=== PATIENT | female | born 1975 | race African-American/Black ===

== ENCOUNTER 2016-12-06 03:14 | Emergency (ER) | payer MEDICAID ==
[~2016-12-06] VITALS: Ht 182.9 cm; Wt 84.0 kg
[~2016-12-06 03:14] MED LIST: DEPAKOTE; EFFEXOR; HCTZ; INSULIN; LOTENSIN; SEROQUEL
[2016-12-06] MEDS ORDERED: SODIUM CHLORIDE 0.9% 1,000 ML IV ONE (05:01)
[2016-12-06] MEDS ORDERED: LORAZEPAM 2MG/ML CPJ IM STA (05:01)
[2016-12-06] MEDS ORDERED: HALOPERIDOL LACTATE 5MG/ML VIAL IM STA (05:01)
[2016-12-06] MEDS ORDERED: DIPHENHYDRAMINE 50MG/ML VIAL IM STA (05:01)
[2016-12-06] MEDS ORDERED: BACITRACIN ZINC OINT UDPKT TOP ONE (05:15)
[2016-12-06] MEDS ORDERED: TETANUS, DIPHTHERIA, PERTUSSIS VAC/PF 0.5ML (>7YR OLD) IM ONE (05:15)
[2016-12-06 05:33] LABS: CHLORIDE 109 mEq/L (98-107)
[2016-12-06 05:34] LABS: BASOPHILS % 1.5 % (0.0-2.0); EOSINOPHILS % 1.7 % (0.0-5.0); HEMATOCRIT. 35.1 % (36.0-48.0); HEMOGLOBIN. 10.7 g/dL (12.0-16.0); MEAN CORPUSCULAR HEMOGLOBIN 20.8 pg (28.0-32.0); MEAN CORPUSCULAR VOLUME 68.3 fL (81.0-99.0); MEAN PLATELET VOLUME 8.5 fl (7.4-10.4); MONOCYTES % 4.8 % (2.0-8.0); PLATELET 326 x1000/uL (130-400); RED BLOOD CELL COUNT 5.13 mill/uL (4.2-5.4); RED CELL DISTRIBUTION WIDTH 33.7 % (11.6-14.6)
[2016-12-06 05:37] LABS: HCG SCREEN NEGATIVE
[2016-12-06 05:40] LABS: PLATELET ESTIMATE NORMAL
[2016-12-06 05:44] LABS: CARBON DIOXIDE 27 mEq/L (21-32); ETHANOL BLOOD < 10 mg/dL
[2016-12-06 06:28] LABS: CLARITY URINE CLOUDY (CLEAR); COLOR URINE YELLOW (YELLOW); GLUCOSE URINE NEGATIVE (NEGATIVE); KETONES URINE NEGATIVE (NEGATIVE); LEUKOCYTE ESTERASE URINE 2+ (NEGATIVE); NITRITE URINE NEGATIVE (NEGATIVE); OCCULT BLOOD URINE 3+ (NEGATIVE); PROTEIN URINE 1+ (NEGATIVE); SPECIFIC GRAVITY URINE 1.025 (1.005-1.030); UROBILINOGEN URINE 0.2 E.U./dL (0.2-1.0)
[2016-12-06 07:08] LABS: *AMPHETAMINES SCREEN URINE NEGATIVE (NEGATIVE); *BARBITURATES SCREEN URINE NEGATIVE (NEGATIVE); *BENZODIAZEPINES SCREEN URINE NEGATIVE (NEGATIVE); *COCAINE SCREEN URINE NEGATIVE (NEGATIVE); CANNABINOID URINE SCREEN NEGATIVE (NEGATIVE); METHADONE URINE SCREEN NEGATIVE (NEGATIVE); OPIATES URINE SCREEN NEGATIVE (NEGATIVE); PHENCYCLIDINE URINE SCREEN NEGATIVE (NEGATIVE)
[2016-12-06] MEDS ORDERED: DIVALPROEX SODIUM 500MG DR TABLET PO ONE (20:00)
[2016-12-06] MEDS ORDERED: QUETIAPINE FUMARATE 100MG TABLET PO SCH (20:00)
[2016-12-07 16:00] VITALS: BP 138/77
== END 2016-12-07 16:49 | disposition home or self-care (01) ==
LOC: ER 03:14
DX: S61.412A Laceration without foreign body of left hand, initial encounter (principal); R45.851 Suicidal ideations; F20.9 Schizophrenia, unspecified; I10 Essential (primary) hypertension; E11.9 Type 2 diabetes mellitus without complications; Z88.0 Allergy status to penicillin; X78.9XXA Intentional self-harm by unspecified sharp object, initial encounter; Y93.89 Activity, other specified; Y92.89 Other specified places as the place of occurrence of the external cause; Y99.8 Other external cause status
CPT/HCPCS: 36415; 80053; 80165; 80305; 80307; 80329; 81001; 82962; 84703; 85025; 96360; 96372; 99285; G0482; J1200; J2060; J7030; Z7610

== ENCOUNTER 2021-06-29 13:28 | Emergency (ER) | payer MEDICAID, OTHER ==
[~2021-06-29] VITALS: Ht 172.7 cm; Wt 100.0 kg
[2021-06-29 14:42] LABS: BASOPHILS % 1.2 % (0.0-2.0); EOSINOPHILS % 2.4 % (0.0-5.0); HEMATOCRIT. 43.7 % (36.0-48.0); HEMOGLOBIN. 14.4 g/dL (12.0-16.0); LYMPHOCYTES % 17.2 % (20.0-50.0); MEAN CORPUSCULAR HEMOGLOBIN 27.4 pg (28.0-32.0); MEAN PLATELET VOLUME 7.6 fl (7.4-10.4); MONOCYTES % 3.9 % (2.0-8.0); NEUTROPHILS % 75.3 % (40.0-76.0); PLATELET 308 x1000/uL (130-400); RED BLOOD CELL COUNT 5.27 mill/uL (4.2-5.4); RED CELL DISTRIBUTION WIDTH 14.2 % (11.6-14.6)
[2021-06-29 14:53] LABS: CHLORIDE 110 mEq/L (98-107)
[2021-06-29 15:00] LABS: ETHANOL BLOOD < 10 mg/dL
[2021-06-29 15:25] LABS: HCG SCREEN NEGATIVE
[2021-06-30] MEDS ORDERED: LISINOPRIL 20MG TABLET PO ONE (09:30)
[2021-06-30 13:38] VITALS: BP 166/100
== END 2021-06-30 16:01 | disposition home or self-care (01) ==
LOC: ER 13:40
DX: R10.9 Unspecified abdominal pain (principal); I10 Essential (primary) hypertension; E11.9 Type 2 diabetes mellitus without complications; F20.9 Schizophrenia, unspecified; F32.A Depression, unspecified; Z59.02 Unsheltered homelessness
CPT/HCPCS: 36415; 80053; 80307; 80320; 80329; 84703; 85025; 99285; G0480

== ENCOUNTER 2021-08-30 16:52 | Emergency (ER) | payer MEDICAID ==
[~2021-08-30] VITALS: Ht 182.9 cm; Wt 91.0 kg
[2021-08-30 16:57] VITALS: BP 174/83
== END 2021-08-30 18:07 | disposition left against medical advice (07) ==
LOC: ER 16:52
DX: Z53.21 Procedure and treatment not carried out due to patient leaving prior to being seen by health care provider (principal)

== ENCOUNTER 2021-09-11 05:10 | Emergency (ER) | payer MEDICAID ==
[~2021-09-11] VITALS: Ht 177.8 cm; Wt 100.0 kg
[2021-09-11 06:00] VITALS: BP 154/94
[2021-09-11] MEDS ORDERED: ACETAMINOPHEN 325MG TABLET PO ONE (06:00)
[2021-09-11] MEDS ORDERED: TOPUD PO (06:47)
== END 2021-09-11 08:45 | disposition home or self-care (01) ==
LOC: ER 05:10
DX: R53.1 Weakness (principal); M79.18 Myalgia, other site; F32.9 Major depressive disorder, single episode, unspecified; E11.9 Type 2 diabetes mellitus without complications; I10 Essential (primary) hypertension; F20.9 Schizophrenia, unspecified
CPT/HCPCS: 99283

== ENCOUNTER 2021-10-22 17:20 | Emergency (ER) | payer MEDICAID ==
[~2021-10-22] VITALS: Ht 177.8 cm; Wt 80.0 kg
[~2021-10-22 17:20] MED LIST changes: +TOPUD PO
[2021-10-22 18:41] LABS: BASOPHILS % 0.9 % (0.0-2.0); EOSINOPHILS % 1.4 % (0.0-5.0); HEMATOCRIT. 40.9 % (36.0-48.0); HEMOGLOBIN. 13.3 g/dL (12.0-16.0); LYMPHOCYTES % 16.1 % (20.0-50.0); MEAN CORPUSCULAR HEMOGLOBIN 26.8 pg (28.0-32.0); MEAN CORPUSCULAR VOLUME 82.4 fL (81.0-99.0); MEAN PLATELET VOLUME 8.6 fl (7.4-10.4); MONOCYTES % 4.4 % (2.0-8.0); NEUTROPHILS % 77.2 % (40.0-76.0); PLATELET 274 x1000/uL (130-400); RED BLOOD CELL COUNT 4.96 mill/uL (4.2-5.4); RED CELL DISTRIBUTION WIDTH 15.1 % (11.6-14.6)
[2021-10-22 18:44] LABS: CLARITY URINE CLEAR (CLEAR); COLOR URINE YELLOW (YELLOW); KETONES URINE TRACE (NEGATIVE); LEUKOCYTE ESTERASE URINE NEGATIVE (NEGATIVE); NITRITE URINE NEGATIVE (NEGATIVE); OCCULT BLOOD URINE 3+ (NEGATIVE); PH URINE 5.5 (4.5-8.0); PROTEIN URINE 2+ (NEGATIVE); SPECIFIC GRAVITY URINE 1.039 (1.005-1.030)
[2021-10-22 18:47] LABS: CHLORIDE 101 mEq/L (98-107)
[2021-10-22 18:53] LABS: HCG SCREEN NEGATIVE
[2021-10-22 18:58] LABS: ETHANOL BLOOD < 10 mg/dL
[2021-10-22 19:18] LABS: *AMPHETAMINES SCREEN URINE NEGATIVE (NEGATIVE); *BARBITURATES SCREEN URINE NEGATIVE (NEGATIVE); *BENZODIAZEPINES SCREEN URINE NEGATIVE (NEGATIVE); CANNABINOID URINE SCREEN NEGATIVE (NEGATIVE); METHADONE URINE SCREEN NEGATIVE (NEGATIVE); OPIATES URINE SCREEN NEGATIVE (NEGATIVE); PHENCYCLIDINE URINE SCREEN NEGATIVE (NEGATIVE)
[2021-10-22 19:31] LABS: *COCAINE SCREEN URINE PRESUMTIVE POSITIVE (NEGATIVE)
[2021-10-22] MEDS ORDERED: SODIUM CHLORIDE 0.9% 1,000 ML IV ONE (22:15)
[2021-10-23 08:30] VITALS: BP 112/71
== END 2021-10-23 09:11 | disposition home or self-care (01) ==
LOC: ER 17:20
DX: R45.851 Suicidal ideations (principal); Z88.0 Allergy status to penicillin; Z20.822 Contact with and (suspected) exposure to COVID-19; Z86.73 Personal history of transient ischemic attack (TIA), and cerebral infarction without residual deficits
CPT/HCPCS: 36415; 80053; 80305; 80307; 80320; 80329; 81003; 82010; 84443; 84703; 85025; 99283; C9803; J7030; U0003; U0005; G0480

== ENCOUNTER 2021-11-16 20:54 | Emergency (ER) | payer MEDICAID ==
[~2021-11-16] VITALS: Ht 177.8 cm; Wt 102.0 kg
[2021-11-16] MEDS ORDERED: IBUPROFEN 600MG TABLET PO ONE (22:45)
[2021-11-17 01:49] VITALS: BP 130/79
== END 2021-11-17 02:00 | disposition home or self-care (01) ==
LOC: ER 20:54
DX: S93.491A Sprain of other ligament of right ankle, initial encounter (principal); V00.818A Other accident with wheelchair (powered), initial encounter; F31.9 Bipolar disorder, unspecified; Y93.01 Activity, walking, marching and hiking; Y92.89 Other specified places as the place of occurrence of the external cause; Z88.0 Allergy status to penicillin
CPT/HCPCS: 73610; 73620; 99284

== ENCOUNTER 2021-11-17 06:07 | Emergency (ER) | payer MEDICAID ==
[~2021-11-17] VITALS: Ht 180.3 cm; Wt 97.0 kg
[2021-11-17 09:19] LABS: BASOPHILS % 1.1 % (0.0-2.0); EOSINOPHILS % 2.2 % (0.0-5.0); HEMATOCRIT. 39.6 % (36.0-48.0); HEMOGLOBIN. 13.3 g/dL (12.0-16.0); LYMPHOCYTES % 16.8 % (20.0-50.0); MEAN CORPUSCULAR HEMOGLOBIN 27.7 pg (28.0-32.0); MEAN CORPUSCULAR VOLUME 82.8 fL (81.0-99.0); MEAN PLATELET VOLUME 9.2 fl (7.4-10.4); MONOCYTES % 4.6 % (2.0-8.0); NEUTROPHILS % 75.3 % (40.0-76.0); PLATELET 249 x1000/uL (130-400); RED BLOOD CELL COUNT 4.78 mill/uL (4.2-5.4); RED CELL DISTRIBUTION WIDTH 14.6 % (11.6-14.6)
[2021-11-17 09:39] LABS: HCG SCREEN NEGATIVE
[2021-11-17 09:58] LABS: CHLORIDE 94 mEq/L (98-107); ETHANOL BLOOD < 10 mg/dL
[2021-11-17] MEDS ORDERED: INS NPH/REG HM 70-30 100 UNITS/ML 10ML VIAL (HUMULIN 70-30) SUBCUT ONE (10:15)
[2021-11-17] MEDS ORDERED: INSULIN REGULAR (HUMULIN R) UD 100 UNITS/ML SYR SUBCUT ONE (12:45)
[2021-11-17] MEDS ORDERED: INSULIN REGULAR (HUMULIN R) 300UNITS/3ML VIAL SUBCUT ONE (13:00)
[2021-11-17] MEDS ORDERED: INSULIN REGULAR (HUMULIN R) 300UNITS/3ML VIAL SUBCUT NR (13:15)
[2021-11-17 14:10] VITALS: BP 154/83
[2021-11-17] MEDS ORDERED: QUETIAPINE FUMARATE 50MG TABLET PO SCH (21:00)
== END 2021-11-17 15:21 | disposition home or self-care (01) ==
LOC: ER 06:07
DX: R45.851 Suicidal ideations (principal); F31.9 Bipolar disorder, unspecified; I69.920 Aphasia following unspecified cerebrovascular disease; R73.9 Hyperglycemia, unspecified; I10 Essential (primary) hypertension; I69.951 Hemiplegia and hemiparesis following unspecified cerebrovascular disease affecting right dominant side; Z99.3 Dependence on wheelchair; Z59.00 Homelessness unspecified
CPT/HCPCS: 36415; 80053; 80307; 80320; 80329; 82962; 84703; 85025; 96372; 99285; J1815; G0480

== ENCOUNTER 2021-12-08 17:34 | Emergency (ER) | payer MEDICAID, OTHER ==
[~2021-12-08] VITALS: Ht 175.3 cm; Wt 86.0 kg
[2021-12-08] MEDS ORDERED: INSULIN REGULAR (HUMULIN R) 300UNITS/3ML VIAL SUBCUT ONE (19:30)
[2021-12-08 20:06] LABS: BASOPHILS % 0.8 % (0.0-2.0); EOSINOPHILS % 2.2 % (0.0-5.0); HEMATOCRIT. 39.5 % (36.0-48.0); HEMOGLOBIN. 12.9 g/dL (12.0-16.0); LYMPHOCYTES % 26.6 % (20.0-50.0); MEAN CORPUSCULAR HEMOGLOBIN 26.8 pg (28.0-32.0); MEAN CORPUSCULAR VOLUME 81.9 fL (81.0-99.0); MEAN PLATELET VOLUME 8.4 fl (7.4-10.4); MONOCYTES % 8.2 % (2.0-8.0); NEUTROPHILS % 62.2 % (40.0-76.0); PLATELET 277 x1000/uL (130-400); RED BLOOD CELL COUNT 4.83 mill/uL (4.2-5.4); RED CELL DISTRIBUTION WIDTH 14.2 % (11.6-14.6)
[2021-12-08 20:12] LABS: CHLORIDE 98 mEq/L (98-107)
[2021-12-08 20:25] LABS: BETA HYDROXYBUTYRATE 0.1 mMol/L (0.0-0.3); ETHANOL BLOOD < 10 mg/dL
[2021-12-09 04:17] LABS: *AMPHETAMINES SCREEN URINE NEGATIVE (NEGATIVE); *BARBITURATES SCREEN URINE NEGATIVE (NEGATIVE); *BENZODIAZEPINES SCREEN URINE NEGATIVE (NEGATIVE); *COCAINE SCREEN URINE NEGATIVE (NEGATIVE); CANNABINOID URINE SCREEN NEGATIVE (NEGATIVE); METHADONE URINE SCREEN NEGATIVE (NEGATIVE); OPIATES URINE SCREEN NEGATIVE (NEGATIVE); PHENCYCLIDINE URINE SCREEN NEGATIVE (NEGATIVE)
[2021-12-09] MEDS ORDERED: INSULIN REGULAR (HUMULIN R) 300UNITS/3ML VIAL SUBCUT ONE (09:00)
[2021-12-09 09:59] VITALS: BP 171/106
== END 2021-12-09 12:08 | disposition home or self-care (01) ==
LOC: ER 17:34
DX: E11.65 Type 2 diabetes mellitus with hyperglycemia (principal); I10 Essential (primary) hypertension; Z88.0 Allergy status to penicillin; Z98.890 Other specified postprocedural states; Z86.73 Personal history of transient ischemic attack (TIA), and cerebral infarction without residual deficits
CPT/HCPCS: 36415; 80053; 80305; 80307; 80320; 80329; 82010; 82962; 85025; 96372; 99284; J1815; Z7610; G0480

== ENCOUNTER 2022-02-24 08:14 | Emergency (ER) | payer MEDICAID ==
[~2022-02-24] VITALS: Ht 177.8 cm; Wt 86.0 kg
[2022-02-24 12:20] VITALS: BP 169/92
== END 2022-02-24 12:37 | disposition home or self-care (01) ==
LOC: ER 08:14
DX: F41.9 Anxiety disorder, unspecified (principal); E11.9 Type 2 diabetes mellitus without complications; E78.00 Pure hypercholesterolemia, unspecified; I10 Essential (primary) hypertension; Z59.00 Homelessness unspecified; Z88.0 Allergy status to penicillin; Z98.890 Other specified postprocedural states; Z86.73 Personal history of transient ischemic attack (TIA), and cerebral infarction without residual deficits
CPT/HCPCS: 99283